=== PATIENT | female | born 1955 | race Caucasian/White ===

== ENCOUNTER → 2016-11-03 | Day surgery (SDC) | payer MEDICAID ==
[2016-09-20 04:57] VITALS: BMI 29.6
[~2016-11-03] MED LIST: BUPIVACAINE 0.5% 30 ML VIAL ONE; Clindamycin 600 mg/D5W 50 ml 600 MG/50 ML IVB IV ONE; FENTANYL 100 MCG/2 ML VIAL IV ONE; FENTANYL 100 MCG/2 ML VIAL IV PRN; FENTANYL 100 MCG/2 ML VIAL ONE; HYDROmorphone 1 MG INJECTION IV PRN; ISOVUE-300 (61%) 50 ML ONE; LIDOCAINE 1% 30 ML VIAL (PRESERVATIVE FREE) ONE; MEPERIDINE 25 MG/ML TUBEX IV PRN; MIDAZOLAM 2 MG/2 ML VIAL IV ONE; ONDANSETRON HCL 4 MG ODT TAB PO PRN; ONDANSETRON HCL 4 MG/2 ML VIAL IV PRN; OXYCODONE HCL 5 MG TABLET ONE; PROPOFOL 200 MG/20 ML VIAL IV ONE; hydrALAZINE 20 MG/ML VIAL IV PRN
--- NOTE | 2016-11-03 12:17 | HIM.ANES ---
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), Other HEENT Problems Hx Other HEENT Surgery: TONSILLECTOMY Respiratory: Yes: Hx Emphysema, Hx Chronic Obstructive Pulmonary Disease (COPD) , Hx Sleep Apnea, Hx Home O2 (3L/NC CONTINUOUS), Hx CPAP Dependent (DOES NOT USE ON A REGULAR BASIS), Hx Pneumonia (07/11/16 CHRONIC PNEUMONIA) Gastrointestinal: Yes: Hx Gastroesophageal Reflux Disease, Hx Hiatal Hernia, Hx Gastrointestinal Disorders, Hx Colonoscopy, Hx Endoscopy (08/2015) Neurological/Musculoskeletal: Yes: Hx Back Pain, Hx Numbness, Tingling, Weakness in Arms & Legs (RADIAL NERVE DAMAGE RIGHT HAND), Hx Neurological Disorders Other Neurological Problems: NERVE DAMAGE TO RT HAND Psychological: Yes Hx Anxiety, No Hx Depression, Yes Hx Mental/Emotional Disorders HX Other Psyco/Soc Problems: INSOMNIA Endocrine: Yes: Hx Insulin Dependent Diabetes Blood/Autoimmune: No: Hx Blood Transfusions, Hx Anemia, Hx AIDS, Hx Hepatitis (type) Smoking Status: Former smoker Past Social History: Denies: Substance Use Disorder Hx Stress Test (date): Yes (11/2015 INCONCLUSIVE) Hx Chest Xray (date): (CT CHEST 06/17/2016) Surgical History: Yes: T&A, Back (KYPHOPLASTY 07/2016), Knee (LEFT KNEE SCOPE), Other (Right knee) Other Surgical History: TONSILLECTOMY PARTIAL HYSTERECTOMY S, TOTAL S, LEFT BREAST LUMPECTOMY 2011 LT KNEE SX - Focused Physical Exam NPO since: 11/03/16 0400 light breakfast Mallampati: Class II Thyromental Distance: Greater than 3 Neck: Full Range of Motion Dental: Edentulous Cardiovascular/Chest: Normal (RRR no mumurs or rubs.) Respiratory: Lungs clear. negative: Rhonchi, Wheezing Any problems with anesthesia, including nausea and vomiting?: Yes (chest pain, no cardiac source identified) Any relatives with a history of Malignant Hyperthermia?: No Does patient have a history of Malignant Hyperthermia?: No Beta Maranda given (if appropriate): N/A Does the patient have a history of Motion Sickness-: No Other: Problem List Problem Status Onset Acute and chronic respiratory failure ([id number]) Acute Acute exacerbation of chronic obstructive airways disease Acute Acute respiratory failure with hypoxia Acute Altered mental status Acute COPD exacerbation Acute Compression fx, lumbar spine Acute Dorsalgia Acute Hypoxia Acute Hypoxia Acute Leukocytosis Acute Major depression, chronic Acute Metabolic encephalopathy Acute Microcytic anemia Acute Polypharmacy Acute Respiratory distress Acute Respiratory tract infection Acute Right lower lobe pneumonia Acute Right lower lobe pneumonia Acute Thrombocytosis Acute Type 2 diabetes mellitus with diabetic polyneuropathy Acute UTI (urinary tract infection) Acute Adolescent depression Chronic Ambulatory dysfunction Chronic Anemia Chronic Anemia, chronic disease Chronic COPD (chronic obstructive pulmonary disease) Chronic Compression fracture of thoracic vertebra Chronic Constipation Chronic GERD (gastroesophageal reflux disease) Chronic Hypertension Chronic Noncompliance Chronic Obesity (BMI 30.0-34.9) Chronic Unintentional poisoning by narcotic Suspected Allergies Allergy/AdvReac Type Severity Reaction Status Date / Time carvedilol [From Coreg] Allergy Severe Hives* Verified 10/31/16 15:41 doxycycline Allergy Severe Hives* Verified 10/31/16 15:41 tetracycline [Tetracycline] Allergy Severe Hives* Verified 10/31/16 15:41 Tricyclic Compounds Allergy Severe Hives* Verified 10/31/16 15:41 Penicillins Allergy Hives* Verified 10/31/16 15:41 tobramycin Allergy Hives* Verified 10/31/16 15:41 Home Medications Medication Instructions Recorded Last Taken Type Valsartan [Diovan] 160 mg PO QAM 06/01/13 11/03/16 04:00 History Esomeprazole Mag Trihydrate 40 mg PO BID 08/01/14 11/02/16 History [Nexium] Trazodone HCl 100 mg PO QHS PRN 02/08/15 05/29/16 History Glimepiride [Amaryl] 2 mg PO BID 06/07/15 11/02/16 History Diltiazem HCl [Matzim LA] 360 mg PO QAM 01/07/16 11/03/16 04:00 History Duloxetine [Cymbalta] 60 mg PO HS 01/07/16 11/02/16 History Furosemide 20 mg PO QAM 01/07/16 11/02/16 History Lorazepam 2 mg PO BID 01/07/16 11/02/16 History Insulin Detemir [Levemir Flextouch] 10 units SQ QAM 01/08/16 11/02/16 History Ergocalciferol (Vitamin D2) 50,000 units PO .Mondays05/09/16 10/27/16 History [Vitamin D2 (ergocalciferol)] Prednisone [Deltasone, Orasone] 10 mg PO DAILY 05/09/16 11/02/16 History Albuterol Sulfate [Proventil Hfa] 1 - 2 puff INH Q4H PRN 05/29/16 09/18/16 History Insulin Aspart [Novolog] 0 units SQ .SSI ACHS PRN 05/29/16 11/02/16 21:30 History 16 UNITS Oxycodone HCl/Acetaminophen 1 tab PO Q8H PRN 09/18/16 11/02/16 History [Percocet 10-325 mg Tablet] Albuterol Sulfate Nebs [Proventil, 3 ml NEB QID PRN 11/03/16 11/03/16 09:30 History Ventolin] Arformoterol Tartrate [Brovana] 15 mcg IH BID 11/03/16 11/03/16 09:30 History Azithromycin 250 mg PO DAILY 11/03/16 11/02/16 History Height and Weight Patient's height 5 ft 1 in Patient's weight 71.169 kg BMI 29.6 Vital Signs Temperature 97.7 F 11/03/16 10:58 Pulse Rate 58 L 11/03/16 10:58 Respiratory Rate 18 11/03/16 10:58 Blood Pressure 140/58 L 11/03/16 10:58 Pulse Oxygen Saturation 97 11/03/16 10:58 METS - Level of Activity: Eating, Dressing, walking around house, dishwashing - Anesthetic Plan Anesthesia Type: General ASA Class: 4 -: I have examined this patient and reviewed the medical record. The patient has been assessed prior to anesthesia. Risks and benefits of anesthesia and anesthetic technique options have been discussed and all questions answered. The patient accepts the risk and desires me to proceed with the planned anesthetic.
[2016-11-03] MEDS: FENTANYL 100 MCG/2 ML VIAL IV PRN ×2 (13:39→14:02)
--- NOTE | 2016-11-03 13:44 | HIMOPRPT ---
DATE OF PROCEDURE: 11/03/16 PREOPERATIVE DIAGNOSIS: L5 compression fracture. POSTOPERATIVE DIAGNOSIS: L5 compression fracture. PROCEDURE PERFORMED: Kyphoplasty, L5. SURGEON: Hayden Sethi MD. [employer]ER: ANESTHESIA: General endotracheal anesthesia. IV FLUIDS: Crystalloids ESTIMATED BLOOD LOSS: Minimal SPECIMENS: None. COMPLICATIONS: None. IMPLANTS: Bone cement 3 cubic centimeters in each pedicle. A total of 6 cubic centimeters injected in the vertebral body of L5. BRIEF HISTORY: AIDAN NAJERA is a 61 year-old F patient. Patient has history of osteoporosis. She previously had L4 and T12 kyphoplasty is done in the past. She developed another compression fracture at L5 based on the MRI.. The patient was scheduled for kyphoplasty of L5. The patient understood that the risks involved in surgery include infection, extravasation of the cement, neurological deficit, DVT, pulmonary embolism, stroke, and even . The patient volunteered an informed consent. The patient was seen on the day of surgery in the preop holding area. Surgical site was marked. The patient was then wheeled back into the operating room. DESCRIPTION OF THE PROCEDURE: The patient was intubated while on the hospital bed and then placed prone on the radiolucent table. Proper time-out was performed. 2 grams of IV Ancef were given. Surgical site was prepped and draped. Double C-arm was used. We started with cannulation of the left L5 pedicle. We used Jamshidi needles to cannulate the each pedicle. AP and lateral C-arm images were used. Once the pedicles were cannulated, we inserted a kyphoplasty balloon on each side. This balloon was inflated under AP and lateral C-arm images. We then injected a semiliquid cement. Total of 3 cubic centimeters cement was injected into the each pedicle. No extravasation was noted. The final AP and lateral x-rays were obtained. The skin was closed with 3-0 nylon. The patient tolerated the procedure very well and was taken to the recovery room in stable condition. DISPOSITION: The patient would be discharged home today. The patient would be seen back in the clinic in 2 weeks.
[2016-11-03 13:53] VITALS: TEMP 97.8
[2016-11-03 15:50] VITALS: PULSE 65
--- NOTE | 2016-11-03 17:51 | SC.ANESPOS ---
Post-Anesthesia Note LOC: Fully Awake Post-Anesthesia Assessment: Awake, Returned to Baseline, Hemodynamically Stable , Pain Control Adequate Phase I & II Recovery Complete: Yes Apparent Anesthesia Complication: No : N PACU Discharge Time: 14:25 - Vital Signs Blood Pressure: 111/54 Pulse: 65 Resp Rate: 18 O2 Sat: 96 Temp: 97.8 F - Comments Anesthesia Discharge Time Report Time 14:25
[2016-11-03 17:52] VITALS: BP 111/54
== END ==
LOC: SDC 10:20
PROVIDERS: ATTEND Orthopaedic Surgery
PROC: 0QU03JZ Supplement Lumbar Vertebra with Synthetic Substitute, Percutaneous Approach (ICD-10-PCS; 2016-11-03)
PROC: 0QS03ZZ Reposition Lumbar Vertebra, Percutaneous Approach (ICD-10-PCS; principal; 2016-11-03 11:45)
DX: S32.059A Unspecified fracture of fifth lumbar vertebra, initial encounter for closed fracture (principal); W19.XXXA Unspecified fall, initial encounter; E11.9 Type 2 diabetes mellitus without complications; I10 Essential (primary) hypertension; Z79.4 Long term (current) use of insulin; Z79.82 Long term (current) use of aspirin; Z79.52 Long term (current) use of systemic steroids; Z79.899 Other long term (current) drug therapy; Z79.84 Long term (current) use of oral hypoglycemic drugs; Z87.891 Personal history of nicotine dependence
CPT/HCPCS: 22514; 82962; J2001; J2250; J3010; J3490